=== PATIENT | female | born 1935 | race Caucasian/White ===

== ENCOUNTER 2022-01-12 17:45 | Emergency (ER) | payer OTHER, MEDICARE ==
[2022-01-12 18:45] VITALS: BP 139/70; PULSE 83; RESP 16; TEMP 98.3; BMI 29.5
== END 2022-01-12 19:50 | disposition home or self-care (01) ==
LOC: FER 17:45
DX: S52.501A Unspecified fracture of the lower end of right radius, initial encounter for closed fracture (principal); W01.0XXA Fall on same level from slipping, tripping and stumbling without subsequent striking against object, initial encounter
CPT/HCPCS: 73110-TC-RT-FY; 73130-TC-RT-FY; 99283-25